=== PATIENT | female | born 1950 | race Two or more races ===

== ENCOUNTER 2018-12-13 07:09 | Day surgery (SDC) | payer MEDICARE, BC ==
[~2018-12-13] VITALS: Ht 160 cm; Wt 74.8 kg
[2018-12-13] VITALS (10 sets, daily range): BP systolic 109–125; BP diastolic 61–78
[~2018-12-13 07:09] MED LIST: ATORVASTATIN CA20 MG ORAL; LR 1000ml 1,000 ML IVLG SCH
--- NOTE | 2018-12-13 07:34 | Short Stay Surgery H&P ---
History of Present Illness History of Present Illness Chief Complaint Abdominal pains /screening colonoscopy OSCAR Krishnamurthy is a 68 year old female who was admitted on for Abdominal Pain, Gerds/colonoscopy screening Patient History Allergies: Coded Allergies: No Known Allergies (Unverified , 12/11/18) Medication History Scheduled Atorvastatin Calcium* (Atorvastatin Calcium*), 10 MG ORAL BEDTIME, (Reported) Review of Systems Cardiovascular: Reports: no symptoms Respiratory: Reports: no symptoms Skeletal: Reports: no symptoms Gastrointestinal: Reports: gastro esophageal reflux disease Genitourinary: Reports: no symptoms Neurologic: Reports: no symptoms Endocrine: Reports: no symptoms Hematologic: Reports: no symptoms Physical Exam Skin: normal HENT: normal Heart: normal Lungs: normal Abdomen: normal Extremities: normal Genitourinary: normal Plan Plan of Care Upper and lower GI.endoscopies Preop Interventions None. Summary of Findings See the reports Attestation Are the patient's medical conditions optimized for surgery? Attestation Response: yes Cj Saenz MD Dec 13, 2018 07:34
--- NOTE | 2018-12-13 07:35 | Pre-Procedure Note/Attestation ---
Pre-Procedure Note/Attestation Complete Prior to Procedure Planned Procedure: left Procedure Narrative: Examination of the upper and the lower GI.tract via endoscopy Indications for Procedure Pre-Operative Diagnosis: R/O Gastritis/esophagitis/colon polyps. Attestation I attest that I discussed the nature of the procedure; its benefits; risks and complications; and alternatives (and the risks and benefits of such alternatives ), prior to the procedure, with the patient (or the patient's legal leasing representative). I attest that, if there was a reasonable possibility of needing a blood transfusion, the patient (or the patient's legal leasing representative) was given the [facility] standardized written summary, pursuant to the [place] Blood Safety Act ([place] Health and Safety Code # 1645, as amended). I attest that I re-evaluated the patient just prior to the surgery and that there has been no change in the patient's H&P, except as documented below: Cj Saenz MD Dec 13, 2018 07:35
[2018-12-13] MEDS ORDERED: LR 1000ml 1,000 ML IVLG SCH (07:48)
--- NOTE | 2018-12-13 07:48 | Anethesia Preoperative Eval ---
Anesthesia Pre-op PMH/ROS General Date of Evaluation: Dec 13, 2018 Time of Evaluation: 07:46 Anesthesiologist: Jensen ASA Score: ASA 2 Mallampati Score Class I : Soft palate, uvula, fauces, pillars visible Class II: Soft palate, uvula, fauces visible Class III: Soft palate, base of uvula visible Class IV: Only hard plate visible Mallampati Classification: Class II Surgeon: Ochoa Diagnosis: Abdominal pain Surgical Procedure: EGD Colonoscopy Anesthesia History: none Family History: no anesthesia problems Allergies: Coded Allergies: No Known Allergies (Unverified , 12/11/18) Medications: see eMAR Patient NPO?: Yes Past Medical History Cardiovascular: Reports: HTN - borderline; Denies: CAD, [place], valve dz, arrhythmia, other Pulmonary: Denies: asthma, COPD, [place], other Gastrointestinal/Genitourinary: Reports: GERD Neurologic/Psychiatric: Denies: dementia, CVA, depression/anxiety, TIA, other Endocrine: Denies: DM, hypothyroidism, steroids, other HEENT: Denies: cataract (L), cataract (R), glaucoma, [place] (L), [place] (R), other Hematology/Immune: Denies: anemia, DVT, bleeding disorder, other Musculoskeletal/Integumentary: Denies: OA, RA, DJD, DDD, edema, other PMH Narrative: as above PSxH Narrative: Knee Sx Anesthesia Pre-op Phys. Exam Physician Exam Constitutional: NAD Neurologic: CN 2-12 intact Cardiovascular: RRR, no M/R/G Respiratory: CTA Gastrointestinal: S/NT/ND Airway Exam Mallampati Score: Class II MO: full Neck: flexible ROM: full Teeth: intact Dentures: no upper, no lower Anesthesia Pre-op A/P Risk Assessment & Plan Assessment: ASA 2 Plan: MAC Status Change Before Surgery: Júnior Boo MD Dec 13, 2018 07:48
[2018-12-13] MEDS ORDERED: Midazolam 2mg/2ml Inj ONE (08:00)
[2018-12-13] MEDS ORDERED: LR 1000ml ONE (08:00)
[2018-12-13] MEDS ORDERED: Propofol 200mg/20ml IV ONE (08:00)
[2018-12-13] MEDS ORDERED: fentaNYL 100 mcg/2 mL IV PRN (08:00)
[2018-12-13] MEDS ORDERED: fentaNYL 100 mcg/2 mL IV ONE (08:00)
--- NOTE | 2018-12-13 08:32 | Endoscopy Procedure Note ---
Endoscopy Procedure Note General Indication for Procedure: Abdominal pains/GERDs/screening colon Procedures Performed: EGD - Completely normal upper GI. Endoscopy with minimal bile seen in the gastric cavity, biopsy was done per random from gastric body., colonoscopy - Completely normal total colonoscopy. Specimen: yes Pt Tolerated Procedure Well: Yes Estimated Blood Loss: none Anesthesia Anesthesiologist: Dr. Styles Anesthesia: moderate sedation Medications Medication Given: see anesthesia record Inserted Devices Implant(s) used?: No Quality Quality of Bowel Preparation: Excellent Did scope reach the cecum?: Yes Was there any complications?: No GI Core Measures 50 yrs or older w/o bx or poly: Yes 10yrs. F/U recommended: Yes 18 years or older w/prev. colo: No <3yrs. since last colonoscopy: No Med reason:<3 yrs.: System Reason:<3 yrs.: Last colonoscopy >= to 3yrs: Yes Cj Saenz MD Dec 13, 2018 08:32
--- NOTE | 2018-12-13 08:33 | Discharge Instructions ---
Discharge Instructions Discharge Instructions Follow up with: Make appointment to see the doctor after 2 weeks For Congestive Heart Failure Reminder Report to your physician any weight gain of 5 pounds or more in one week. Cj Saenz MD Dec 13, 2018 08:33
--- NOTE | 2018-12-13 08:39 | Immediate Post-Op Evaluation ---
Immediate Post-Op Evalulation Immediate Post-Op Evalulation Procedure: EGD Colonocopy Date of Evaluation: Dec 13, 2018 Time of Evaluation: 08:38 IV Fluids: 600 Blood Products: none Estimated Blood Loss: none Urinary Output: none Blood Pressure Systolic: 118 Blood Pressure Diastolic: 67 Pulse Rate: 64 Respiratory Rate: 20 O2 Sat by Pulse Oximetry: 98 Temperature (Fahrenheit): 97.5 Pain Score (1-10): 1 Nausea: No Vomiting: No Complications none Patient Status: reacts, patent, none Hydration Status: adequate Júnior Styles MD Dec 13, 2018 08:39
--- NOTE | 2018-12-13 09:35 | 48 Hour Post Anesthesia Eval ---
Post Anesthesia Evaluation Procedure: EGD Colonocopy Date of Evaluation: Dec 13, 2018 Time of Evaluation: 09:33 Blood Pressure Systolic: 128 0: 76 Pulse Rate: 64 Respiratory Rate: 18 Temperature (Fahrenheit): 97.6 O2 Sat by Pulse Oximetry: 98 Airway: patent Nausea: No Vomiting: No Pain Intensity: 1 Hydration Status: adequate Cardiopulmonary Status: stable Mental Status/LOC: patient returned to baseline Follow-up Care/Observations: n/a Post-Anesthesia Complications: none Follow-up care needed: ready to discharge Júnior Styles MD Dec 13, 2018 09:34
--- NOTE | 2018-12-13 15:45 | Operative Note - Dictated ---
DATE OF OPERATION: 12/13/2018 SURGEON: Cj Saenz M.D. PROCEDURE: Esophagogastroduodenoscopy with biopsy. PREOPERATIVE DIAGNOSIS: Abdominal pain, history of gastroesophageal reflux. POSTOPERATIVE DIAGNOSIS: Completely normal upper GI endoscopy with minimal amount of bile in the stomach. Gastric cavity was completely normal. No evidence of ulcers, tumors, or polyps found. A random biopsy from gastric body obtained. MEDICATION USED: Per Dr. Styles, anesthesiologist. INSTRUMENT: GIF Olympus upper GI video endoscope. DESCRIPTION OF PROCEDURE: The patient after arriving in the endoscopy unit, was told about risks and benefits of the procedure, which she accepted and signed informed consent. She was then put on the left lateral decubitus position. After adequate IV sedation, the scope was gently passed through the cricopharyngeal area, was lodged into the upper esophagus and advanced towards gastroesophageal junction. The entire length of the esophagus looked normal. No evidence of varices, inflammatory process, ulceration, or exudate, etc. was found. GE junction was also completely normal. No evidence of Shipley's or hiatal hernia. At this time, the scope was advanced into the stomach. Gastric cavity was distended with insufflation of air and the areas of the fundus and the body and the antrum were examined in an leather polisher fashion which revealed completely normal finding with gastric mucosa without any evidence of any pathology. There was minimal amount of bile seen in the body of the stomach, which was suctioned. At this point, one random biopsy was also obtained from gastric body. Retroflexion maneuver was also applied in the area of the gastroesophageal junction was examined in a closer fashion, which was completely normal. At this time, the scope was passed through the gastric body, antrum, pylorus, first and second portion of duodenum were found to be also completely normal. Finally, the scope was pulled out and the procedure was terminated. The patient tolerated the procedure well. Cj Saenz M.D. DR: LORENE JOB#: [id number] CC:
--- NOTE | 2018-12-13 16:00 | Operative Note - Dictated ---
DATE OF OPERATION: 12/13/2018 SURGEON: Cj Saenz M.D. PROCEDURE: Total colonoscopy/screening colonoscopy. PREOPERATIVE DIAGNOSIS: Screening colonoscopy. POSTOPERATIVE DIAGNOSIS: Completely normal total colonoscopy up to the base of the cecum as examined. MEDICATION USED: Per Dr. Styles, anesthesiologist. INSTRUMENT: GIF Olympus video colonoscope. DESCRIPTION OF PROCEDURE: The patient after arriving at the endoscopy unit, was told about risks and benefits of the procedure, which she accepted and signed informed consent. At this time, she was put on the left lateral decubitus position. After adequate IV sedation, the scope was gently passed through the anal area and a retroflexion maneuver was applied here, which did not reveal any particular pathology and no major hemorrhoids seen. The rest of the rectum also looked normal. At this time, the scope was passed through somewhat redundant left colon reaching to the splenic flexure from there into the transverse colon, hepatic flexure, and finally was guided into the right colon all the way to the base of the cecum. All these areas remained to be completely within normal limits without any evidence of polyps, tumors, strictures, ulcers, inflammatory process, etc. The colon cleanup was adequate and excellent. At this point, upon reaching to the base of the cecum, within 6 minutes, the scope was gradually pulled out and no other pathology found and the procedure was terminated. The patient tolerated the procedure well and left the endoscopy room in a good condition. Cj Saenz M.D. DR: LORENE JOB#: [id number] CC:
== END 2018-12-13 10:25 | disposition home or self-care (01) ==
LOC: GAS 07:09
DX: Z12.11 Encounter for screening for malignant neoplasm of colon (principal); K21.9 Gastro-esophageal reflux disease without esophagitis; R10.9 Unspecified abdominal pain; I10 Essential (primary) hypertension
CPT/HCPCS: 43239; G0121; J2250; J2704; J3010; 94003; 94150